=== PATIENT | male | born 1965 | race African-American/Black ===

== ENCOUNTER 2018-03-28 10:48 | Emergency (ER) | payer MEDICAID ==
[~2018-03-28] VITALS: Ht 175.3 cm; Wt 85.0 kg
[2018-03-28] MEDS ORDERED: SODIUM CHLORIDE 0.9% 1,000 ML IV ONE (11:06)
[2018-03-28] MEDS ORDERED: ONDANSETRON HCL 4MG/2ML INJ IV ONE (11:15)
[2018-03-28] MEDS ORDERED: NALOXONE HCL 1 MG/ML 2ML VIAL IV ONE (11:15)
[2018-03-28 11:34] LABS: BASOPHILS % 0.5 % (0.0-2.0); EOSINOPHILS % 0.4 % (0.0-5.0); HEMATOCRIT. 45.9 % (42.0-52.0); HEMOGLOBIN. 15.6 g/dL (14.0-18.0); LYMPHOCYTES % 26.8 % (20.0-50.0); MEAN CORPUSCULAR HEMOGLOBIN 32.6 pg (28.0-32.0); MEAN CORPUSCULAR VOLUME 96.2 fL (80.0-94.0); MEAN PLATELET VOLUME 7.1 fl (7.4-10.4); MONOCYTES % 5.8 % (2.0-8.0); NEUTROPHILS % 66.5 % (40.0-76.0); PLATELET 356 x1000/uL (130-400); RED BLOOD CELL COUNT 4.78 mill/uL (4.7-6.1); RED CELL DISTRIBUTION WIDTH 14.6 % (11.6-14.6)
[2018-03-28 11:45] LABS: CHLORIDE 107 mEq/L (98-107)
[2018-03-28 11:51] LABS: CREATINE KINASE 387 IU/L (39-308)
[2018-03-28 11:52] LABS: CREATINE KINASE MB FRACTION 4.3 ng/mL (0.5-3.6)
[2018-03-28 11:55] LABS: ETHANOL BLOOD 306 mg/dL
[2018-03-28 12:23] LABS: *BARBITURATES SCREEN URINE NEGATIVE (NEGATIVE); *BENZODIAZEPINES SCREEN URINE NEGATIVE (NEGATIVE); *COCAINE SCREEN URINE PRESUMTIVE POSITIVE (NEGATIVE); METHADONE URINE SCREEN NEGATIVE (NEGATIVE); OPIATES URINE SCREEN NEGATIVE (NEGATIVE)
[2018-03-28 12:24] LABS: *AMPHETAMINES SCREEN URINE PRESUMTIVE POSITIVE (NEGATIVE); CANNABINOID URINE SCREEN PRESUMTIVE POSITIVE (NEGATIVE); PHENCYCLIDINE URINE SCREEN NEGATIVE (NEGATIVE)
[2018-03-28 22:55] VITALS: BP 121/73
== END 2018-03-28 23:44 | disposition home or self-care (01) ==
LOC: EDBD 13:57 → ER 13:57
DX: G92 Toxic encephalopathy (principal); F14.10 Cocaine abuse, uncomplicated; F12.10 Cannabis abuse, uncomplicated; F10.129 Alcohol abuse with intoxication, unspecified; F15.10 Other stimulant abuse, uncomplicated
CPT/HCPCS: 36415; 70450; 71045; 80048; 80305; 80307; 80329; 82550; 82553; 82962; 83735; 84484; 85025; 93005; 96361; 96374; 96375; 99285; G0482; J2310; J2405; J7030

== ENCOUNTER 2018-05-28 23:48 | Emergency (ER) | payer MEDICAID ==
[~2018-05-28] VITALS: Ht 182.9 cm; Wt 61.0 kg
[2018-05-29] MEDS ORDERED: BACITRACIN ZINC OINT UDPKT TOP ONE (01:30)
[2018-05-29 02:23] LABS: BASOPHILS % 0.4 % (0.0-2.0); CHLORIDE 103 mEq/L (98-107); EOSINOPHILS % 0.1 % (0.0-5.0); HEMATOCRIT. 44.8 % (42.0-52.0); HEMOGLOBIN. 15.3 g/dL (14.0-18.0); LYMPHOCYTES % 10.4 % (20.0-50.0); MEAN CORPUSCULAR HEMOGLOBIN 32.4 pg (28.0-32.0); MEAN PLATELET VOLUME 7.3 fl (7.4-10.4); MONOCYTES % 4.6 % (2.0-8.0); NEUTROPHILS % 84.5 % (40.0-76.0); PLATELET 329 x1000/uL (130-400); RED BLOOD CELL COUNT 4.72 mill/uL (4.7-6.1); RED CELL DISTRIBUTION WIDTH 13.1 % (11.6-14.6)
[2018-05-29 02:24] LABS: CLARITY URINE CLEAR (CLEAR); COLOR URINE YELLOW (YELLOW); KETONES URINE TRACE (NEGATIVE); LEUKOCYTE ESTERASE URINE NEGATIVE (NEGATIVE); NITRITE URINE NEGATIVE (NEGATIVE); OCCULT BLOOD URINE NEGATIVE (NEGATIVE); PH URINE 5.5 (4.5-8.0); PROTEIN URINE TRACE (NEGATIVE); SPECIFIC GRAVITY URINE 1.024 (1.005-1.030)
[2018-05-29 02:28] LABS: ETHANOL BLOOD < 10 mg/dL
[2018-05-29 02:35] LABS: *AMPHETAMINES SCREEN URINE NEGATIVE (NEGATIVE); *BARBITURATES SCREEN URINE NEGATIVE (NEGATIVE)
[2018-05-29 02:36] LABS: *BENZODIAZEPINES SCREEN URINE NEGATIVE (NEGATIVE); *COCAINE SCREEN URINE PRESUMTIVE POSITIVE (NEGATIVE); CANNABINOID URINE SCREEN PRESUMTIVE POSITIVE (NEGATIVE); METHADONE URINE SCREEN NEGATIVE (NEGATIVE); OPIATES URINE SCREEN NEGATIVE (NEGATIVE); PHENCYCLIDINE URINE SCREEN NEGATIVE (NEGATIVE)
[2018-05-29] MEDS ORDERED: LIDOCAINE HCL 1% 20ML VIAL (Pyxis) INJ INFIL ONE (04:00)
[2018-05-29] MEDS ORDERED: TETANUS, DIPHTHERIA, PERTUSSIS VAC/PF 0.5ML (>7YR OLD) IM ONE (04:15)
[2018-05-29] MEDS ORDERED: SODIUM CHLORIDE 0.9% 1,000 ML IV ONE ×2 (07:45→09:45)
[2018-05-29 15:10] VITALS: BP 116/76
== END 2018-05-29 15:12 | disposition home or self-care (01) ==
LOC: ER 23:48
DX: S81.012A Laceration without foreign body, left knee, initial encounter (principal); R41.82 Altered mental status, unspecified; S71.112A Laceration without foreign body, left thigh, initial encounter; F17.200 Nicotine dependence, unspecified, uncomplicated; F19.10 Other psychoactive substance abuse, uncomplicated; Y08.89XA Assault by other specified means, initial encounter; Y93.89 Activity, other specified; Y92.89 Other specified places as the place of occurrence of the external cause; Z59.0 Homelessness
CPT/HCPCS: 12002; 36415; 70450; 73552; 73562; 80053; 80305; 80307; 80329; 81003; 85025; 90471; 90715; 96360; 96361; 99284; G0482; J3490; J7030

== ENCOUNTER 2019-11-13 21:02 | Emergency (ER) | payer MEDICAID ==
[~2019-11-13] VITALS: Ht 170.2 cm; Wt 91.0 kg
[2019-11-14] MEDS ORDERED: AMOXICILLIN/POTASSIUM CLAVULANATE 875/125MG TAB PO ONE (00:30)
[2019-11-14] MEDS ORDERED: IBUPROFEN 600MG TABLET PO ONE (00:30)
[2019-11-14] MEDS ORDERED: TETANUS, DIPHTHERIA, PERTUSSIS VAC/PF 0.5ML (>7YR OLD) IM ONE (00:30)
[2019-11-14] MEDS ORDERED: HYDROCODONE/ACETAMINOPHEN 5/325MG TABLET PO ONE (00:30)
[2019-11-14 08:00] VITALS: BP 146/81
== END 2019-11-14 09:19 | disposition home or self-care (01) ==
LOC: ER 21:02
DX: S61.215A Laceration without foreign body of left ring finger without damage to nail, initial encounter (principal); S61.511A Laceration without foreign body of right wrist, initial encounter; F14.10 Cocaine abuse, uncomplicated; W54.0XXA Bitten by dog, initial encounter; Y93.89 Activity, other specified; Y92.89 Other specified places as the place of occurrence of the external cause; Y99.8 Other external cause status
CPT/HCPCS: 12002; 90471; 90715; 99284

== ENCOUNTER 2020-04-09 01:17 | Emergency (ER) | payer MEDICAID ==
[~2020-04-09] VITALS: Ht 175.3 cm; Wt 70.0 kg
[2020-04-09] MEDS ORDERED: LIDOCAINE HCL/PF 1% 10 MG/ML 5ML VIAL IJ ONE (04:15)
[2020-04-09] MEDS ORDERED: BACITRACIN ZINC OINT UDPKT TOP ONE (04:15)
[2020-04-09] MEDS ORDERED: TETANUS, DIPHTHERIA, PERTUSSIS VAC/PF 0.5ML (>7YR OLD) IM ONE (04:15)
[2020-04-09 06:41] VITALS: BP 101/68
== END 2020-04-09 06:42 | disposition home or self-care (01) ==
LOC: ER 01:17
DX: S21.112A Laceration without foreign body of left front wall of thorax without penetration into thoracic cavity, initial encounter (principal); S27.9XXA Injury of unspecified intrathoracic organ, initial encounter; W26.9XXA Contact with unspecified sharp object(s), initial encounter; Y93.89 Activity, other specified; Y92.89 Other specified places as the place of occurrence of the external cause; Y99.8 Other external cause status
CPT/HCPCS: 12001; 71101; 82962; 90471; 90715; 99283; J3490; Z7610

== ENCOUNTER 2022-07-20 02:34 | Emergency (ER) | payer MEDICAID ==
[~2022-07-20] VITALS: Ht 172.7 cm; Wt 68.5 kg
[2022-07-20 03:34] VITALS: BP 183/107
[2022-07-20] MEDS ORDERED: SULF1TAB48 PO ×2 (07:24)
[2022-07-20] MEDS ORDERED: AMOX1TAB16 MT ×2 (07:24)
[2022-07-22] MEDS ORDERED: AMOX1TAB16 MT (17:21)
[2022-07-22] MEDS ORDERED: SULF1TAB48 PO (17:21)
== END 2022-07-20 08:44 | disposition home or self-care (01) ==
LOC: ER 02:34
DX: L03.012 Cellulitis of left finger (principal); M79.89 Other specified soft tissue disorders
CPT/HCPCS: 73130; 99283